=== PATIENT | female | born 1980 | race Caucasian/White ===

== ENCOUNTER 2018-07-12 11:48 | Emergency (ER) | payer BC ==
[2018-07-12] MEDS ORDERED: SODIUM CHLORIDE 0.9% 1000ML 1,000 ML IVS ONE (12:15)
[2018-07-12] MEDS ORDERED: ONDANSETRON INJ 4 MG/2 ML VIAL IV ONE (12:21)
--- NOTE | 2018-07-12 12:23 | ED.PDOC ---
History of Present Illness - General Chief Complaint: Abdominal Pain Stated Complaint: N/V;bloated Time Seen by Provider: 07/12/18 12:01 Source: patient Exam Limitations: no limitations - History of Present Illness Initial Comments: Camille Mcghee 38 y/o female stated had colonoscopy done this morning for IBS and also biopsy of polyp was done and had uneventful recovery post procedure was sent home then on arrival at home had N/V;became diaphoretic ;felt bloated then came to ER Timing/Duration: 4-6 hours Severity: moderate Improving Factors: nothing Worsening Factors: other - see hpi Associated Symptoms: diaphoresis, nausea/vomiting Allergies/Adverse Reactions: Allergies NO KNOWN ALLERGY Allergy (Verified 07/12/18 12:27) Home Medications: Ambulatory Orders Escitalopram Oxalate [Lexapro] 20 mg PO DAILY 07/12/18 Linaclotide [Linzess] 145 mcg PO DAILY 07/12/18 Omeprazole [Prilosec Cap] 20 mg PO ACBK 07/12/18 Ondansetron Odt [Zofran ODT] 8 mg PO Q8HRS PRN #10 tab 07/12/18 Review of Systems - Review of Systems Constitutional: States: no symptoms reported EENTM: States: no symptoms reported Respiratory: States: no symptoms reported Cardiology: States: no symptoms reported Gastrointestinal/Abdominal: States: see HPI Genitourinary: States: no symptoms reported, discharge Skin: States: no symptoms reported Neurological: States: no symptoms reported All other Systems: Reviewed and Negative, No Change from Baseline Past Medical History (General) - Patient Medical History Hx Other PMH: Yes - IBS Surgical History: other - tubal - Female History Patient is a Female of Child Bearing Age (10 -59 yrs old): Yes Hx Last Menstrual Period: 07/10/18 Patient : No Family Medical History - Family History Mother Family History: No Known Living Status: Still Living Physical Exam - Physical Exam General Appearance: Alert, Comfortable, No apparent distress Eye Exam: bilateral normal Ears, Nose, Throat: hearing grossly normal, normal ENT inspection, normal pharynx Neck: non-tender, full range of motion, supple Respiratory: chest non-tender, normal breath sounds, no respiratory distress Cardiovascular/Chest: normal peripheral pulses, regular rate, rhythm, no murmur Peripheral Pulses: radial,right: 2+, radial,left: 2+ Gastrointestinal/Abdominal: normal bowel sounds, non tender, soft, no organomegaly Back Exam: no CVA tenderness, no vertebral tenderness Extremity: no pedal edema, no calf tenderness Neurologic: alert, oriented x 3 Skin Exam: normal color, warm/dry Progress - Progress Progress: 07/12/18 12:34 Vital Signs - 24 hr 07/12/18 12:00 Temperature 96.0 F L Pulse Rate [ 72 Left Radial] Respiratory 20 Rate Blood Pressure 95/66 [Right Arm] O2 Sat by Pulse 100 Oximetry 07/12/18 13:34 Discuss all test result with patient and - Results/Orders Results/Orders: Laboratory Results - last 24 hr 07/12/18 07/12/18 07/12/18 12:04 12:04 12:04 WBC 12.3 H RBC 4.61 Hgb 13.9 Hct 41.3 MCV 89.7 MCH 30.2 MCHC 33.7 RDW 13.3 Plt Count 378 MPV 8.2 Absolute Neuts (auto) 10.70 H Absolute Lymphs (auto) 1.10 Absolute Monos (auto) 0.40 Absolute Eos (auto) 0.00 Absolute Basos (auto) 0.00 Neutrophils % 86.9 H Lymphocytes % 9.2 L Monocytes % 3.5 Eosinophils % 0.1 L Basophils % 0.3 Sodium 136 Potassium 3.0 L Chloride 104 Carbon Dioxide 17 L Anion Gap 18.0 BUN 10 Creatinine 0.85 BUN/Creatinine Ratio 11.8 POC Glucose 149 H Random Glucose 153 H Serum Osmolality 274.0 L Calcium 9.1 Total Bilirubin 0.7 AST 27 ALT 16 Alkaline Phosphatase 94 Creatine Kinase CK-MB (CK-2) CK-MB (CK-2) % Troponin I Serum Total Protein 8.3 H Albumin 4.3 Globulin 4.0 H Albumin/Globulin Ratio 1.1 07/12/18 12:40 WBC RBC Hgb Hct MCV MCH MCHC RDW Plt Count MPV Absolute Neuts (auto) Absolute Lymphs (auto) Absolute Monos (auto) Absolute Eos (auto) Absolute Basos (auto) Neutrophils % Lymphocytes % Monocytes % Eosinophils % Basophils % Sodium Potassium Chloride Carbon Dioxide Anion Gap BUN Creatinine BUN/Creatinine Ratio POC Glucose Random Glucose Serum Osmolality Calcium Total Bilirubin AST ALT Alkaline Phosphatase Creatine Kinase 83 CK-MB (CK-2) 2.5 CK-MB (CK-2) % Not Reportable Troponin I < 0.02 Serum Total Protein Albumin Globulin Albumin/Globulin Ratio Departure - Departure Clinical Impression: Status post colonoscopy with polypectomy, Hypokalemia Nausea & vomiting Qualifiers: Vomiting type: unspecified Vomiting Intractability: non-intractable Qualified Code(s): R11.2 - Nausea with vomiting, unspecified Time of Disposition: 13:29 Disposition: Discharge to Home or Self Care Condition: Good Departure Forms: ED Discharge - Pt. Copy, Patient Portal Self Enrollment Diet: other - AVOID GREASY /SPICY FOODS UNTIL BETTER;No chicken noodle soup Referrals: Maksim Lwo III, MD [Primary Care Provider] - 1-2 Weeks Prescriptions: Ondansetron Odt [Zofran ODT] 8 mg PO Q8HRS PRN #10 tab PRN Reason: Nausea Home Medications: Ambulatory Orders Escitalopram Oxalate [Lexapro] 20 mg PO DAILY 07/12/18 Linaclotide [Linzess] 145 mcg PO DAILY 07/12/18 Omeprazole [Prilosec Cap] 20 mg PO ACBK 07/12/18 Ondansetron Odt [Zofran ODT] 8 mg PO Q8HRS PRN #10 tab 07/12/18 Additional Instructions: Return to emergency room as needed;May have rebeca deion,bananas,soda crackers dry cereals then to advance diet as tolerated
[2018-07-12] MEDS ORDERED: PROCHLORPERAZINE INJ 10 MG/2 ML VIAL IV ONE (12:46)
--- NOTE | 2018-07-12 12:53 | CT ---
EXAM DESCRIPTION: Abdoment/Pelvis w/o Contrast CLINICAL HISTORY: Abdominal pain s/p colonoscopy; look for free air COMPARISON: None. TECHNIQUE: CT of the abdomen and pelvis was performed without contrast. Multiple axial images and multiplanar reconstructions were generated. This exam was performed according to our departmental dose-optimization program, which includes automated exposure control, adjustment of the mA and/or kV according to patient size and/or use of iterative reconstruction technique. FINDINGS: Lung bases: The visualized lung bases are clear. Solid organs: Limited evaluation of the solid organs due to lack of IV contrast. The liver, gallbladder, spleen, pancreas, kidneys, and adrenal glands are unremarkable. Gastrointestinal: The stomach and small intestine are unremarkable. Rare colonic diverticulosis without CT evidence for diverticulitis. The appendix is normal. No free fluid or free air. Vascular: The abdominal aorta is normal in caliber on this noncontrast exam. Lymph nodes: No pathologically enlarged lymph nodes are present by CT size criteria. Musculoskeletal and soft tissues: No destructive osseous lesions are present. Small fat-containing umbilical hernia. Urinary bladder and pelvic organs: The urinary bladder is normal. The uterus and adnexal structures are unremarkable. IMPRESSION: 1. No acute abdominal or pelvic noncontrast CT findings. 2. Rare colonic diverticulosis without CT evidence for diverticulitis. 3. Other findings as above. Electronically signed by: Dakota Askew MD 07/12/2018 12:51 PM CDT
[2018-07-12 13:53] VITALS: BP 119/79; TEMP 96.5; O2SAT 99
== END 2018-07-12 13:50 | disposition home or self-care (01) ==
LOC: ER 11:48
DX: R11.2 Nausea with vomiting, unspecified (principal); E87.6 Hypokalemia; K58.9 Irritable bowel syndrome, unspecified; Z98.890 Other specified postprocedural states; Z86.010 Personal history of colon polyps; Z79.899 Other long term (current) drug therapy
CPT/HCPCS: 36415; 36416; 74176; 80053; 82550; 82553; 82948; 84484; 85025; J0780; J2060; J2405; J7030